=== PATIENT | female | born 1980 | race Caucasian/White ===

== ENCOUNTER 2017-08-06 08:54 | Outpatient (CLI) | payer MEDICAID | END 2017-08-06 08:55 | disposition home or self-care (01) | LOC: LAB.R 08:54 | PROVIDERS: ATTEND Physician Assistant Medical | DX: K59.00 Constipation, unspecified (principal); R10.84 Generalized abdominal pain; R19.7 Diarrhea, unspecified | CPT/HCPCS: 83630; 87045; 87046; 87177; 87209 ==

== ENCOUNTER → 2017-08-06 | Outpatient (CLI) | payer MEDICAID ==
[2017-08-06 13:24] LABS: BASOPHILS # (AUTO) 0.1 10^3/uL (0.0-0.1); BASOPHILS % (AUTO) 0.8 %; EOSINOPHILS # (AUTO) 0.3 10^3/uL (0.0-0.7); EOSINOPHILS % (AUTO) 2.9 %; HCT - HEMATOCRIT 43.6 % (37.0-47.0); HGB - HEMOGLOBIN 14.2 g/dL (12.0-16.0); LYMPHOCYTES # (AUTO) 2.9 10^3/uL (1.5-3.5); LYMPHOCYTES % (AUTO) 32.1 %; MEAN CORPUSCULAR HEMOGLOBIN 29.3 pg (27.0-31.0); MEAN CORPUSCULAR HGB CONC 32.6 g/dL (32.0-36.0); MEAN CORPUSCULAR VOLUME 89.8 fL (81.0-99.0); MEAN PLATELET VOLUME 11.6 fL (7.9-10.8); MONOCYTES # (AUTO) 0.7 10^3/uL (0.0-1.0); MONOCYTES % (AUTO) 7.3 %; NEUTROPHILS # (AUTO) 5.2 10^3/uL (1.5-6.6); NEUTROPHILS % (AUTO) 56.9 %; RED BLOOD COUNT 4.85 10^6/uL (4.20-5.40); RED CELL DISTRIBUTION WIDTH 12.8 % (12.0-15.0); UNCORRECTED WHITE BLOOD COUNT 9.1 x10^3/uL; WHITE BLOOD COUNT 9.1 x10^3/uL (4.8-10.8)
[2017-08-06 13:41] LABS: HEMOGLOBIN A1C 0.58 g/dL
[2017-08-06 14:06] LABS: ALBUMIN/GLOBULIN RATIO 1.5 (1.0-2.2); BILIRUBIN,TOTAL 0.6 mg/dL (0.2-1.0); BUN - BLOOD UREA NITROGEN 11 mg/dL (6-20); CALCIUM 10.2 mg/dL (8.5-10.3); CARBON DIOXIDE - CO2 24 mmol/L (21-32); CHLORIDE 106 mmol/L (101-111); CHOL/HDL RATIO 5.5 (<4.4); CHOLESTEROL 186 mg/dL; CREATININE 0.5 mg/dL (0.4-1.0); GFR - MDRD 140 (>89); GLUCOSE 115 mg/dL (70-100); HDL CHOLESTEROL 34 mg/dL; LDL/HDL RATIO 3.8 (<4.4); SODIUM 135 mmol/L (135-145); TRIGLYCERIDES 111 mg/dL; VLDL CHOLESTEROL 22 mg/dL
== END ==
LOC: LAB.N 08:00
PROVIDERS: ATTEND Physician Assistant Medical
DX: Z82.49 Family history of ischemic heart disease and other diseases of the circulatory system (principal); R19.7 Diarrhea, unspecified; Z81.8 Family history of other mental and behavioral disorders; Z83.3 Family history of diabetes mellitus; R10.84 Generalized abdominal pain; K59.00 Constipation, unspecified
CPT/HCPCS: 36415; 80053; 80061; 83036; 84443; 85025

== ENCOUNTER 2017-08-11 10:22 | Emergency (ER) | payer MEDICAID ==
[2017-08-11] MEDS ORDERED: LIDOCAINE 1% 2 ML VIAL ONE (13:28)
--- NOTE | 2017-08-11 13:37 | ED Physician Documentation ---
History of Present Illness - Stated complaint Stated Complaint: BUMP ON TAILBONE - Chief complaint Chief Complaint: General - History obtained from History obtained from: Patient - History of Present Illness Timing: How many weeks ago (1) - Additonal information Additional information: 37-year-old female has had a small red bump on her right buttocks for the past week. This area has grown in size and tenderness. Is begun to drain. There is a fair amount of drainage from the area and the pain has not decreased. Review of Systems Constitutional: reports: Myalgias, Fatigue. denies: Fever Eyes: denies: Decreased vision Ears: denies: Ear pain Nose: denies: Congestion Throat: denies: Sore throat Cardiac: denies: Chest pain / pressure Respiratory: denies: Cough GI: denies: Vomiting : denies: Dysuria, Frequency Skin: reports: Lesions. denies: Rash Musculoskeletal: reports: Extremity pain. 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 - Present Medications Home Medications: Ambulatory Orders Medication Instructions Recorded Confirmed HYDROcod/ACETAM 5/325 [[place] 5/325] 1 - 2 ea PO Q6H PRN #15 tablet 08/11/17 Melatonin 12 mg PO DAILY PM PRN 08/11/17 08/11/17 Sulfamethoxazole/Trimethoprim 1 each PO BID #14 tablet 08/11/17 [Sulfamethoxazole-Tmp Ds Tablet] - Allergies Allergies/Adverse Reactions: Allergies Allergy/AdvReac Type Severity Reaction Status Date / Time No Known Drug Allergies Allergy Verified 08/11/17 10:28 - Social History Does the pt smoke?: Yes Smoking Status: Current every day smoker Does the pt drink ETOH?: No Substance Use and Type: Marijuana PD ED PE NORMAL - Vitals Vital signs reviewed: Yes (Hypertension) - General General: Alert and oriented X 3, No acute distress, Well developed/nourished - HEENT HEENT: Atraumatic - Respiratory Respiratory: No respiratory distress - Back Back: No CVA TTP, No spinal TTP - Derm Derm: Normal color, Warm and dry, No rash - Extremities Extremities: No deformity, Other (There is a 2 cm round area over the upper end of the right buttocks at the edge of the crease. There is surrounding tenderness and fluctuance to the area. I am not able to manually express drainage.) - Neuro Neuro: Alert and oriented X 3, No motor deficit, No sensory deficit, Normal speech Eye Opening: Spontaneous Motor: Obeys Commands Verbal: Oriented GCS Score: 15 - Psych Psych: Normal mood, Normal affect Results - Vitals Vitals: Vital Signs - 24 hr 08/11/17 08/11/17 10:24 13:52 Temperature 36.4 C L Heart Rate 79 78 Respiratory 16 18 Rate Blood Pressure 138/85 H 152/88 H O2 Saturation 98 96 Oxygen O2 Source Room air Procedures - Abscess I&D (location) Right buttocks Preparation: Chlorhexadine, Lidocaine 1% Incision: Incised with scalpel, Purulent drainage, Loculations broken, Irrigated , Culture obtained Other: Pt tolerated well, Dressing applied, Antibiotic prescribed PD MEDICAL DECISION MAKING - ED course Complexity details: reviewed results, re-evaluated patient, considered differential, d/w patient, d/w family ED course: 37-year-old female with a abscess on the buttocks is incised and drained we will put her on some Septra. Departure - Departure Disposition: 01 Home, Self Care Clinical Impression: Abscess Condition: Stable Instructions: ED Abscess IandD Follow[facility]Up: [facility] [Provider Group] Prescriptions: HYDROcod/ACETAM 5/325 [[place] 5/325] 1 - 2 ea PO Q6H PRN #15 tablet PRN Reason: Pain Sulfamethoxazole/Trimethoprim [Sulfamethoxazole-Tmp Ds Tablet] 1 each PO BID # 14 tablet Forms: Activity restrictions Discharge Date/Time: 08/11/17 13:53
[2017-08-11 13:53] VITALS: BP 152/88
== END 2017-08-11 13:53 | disposition home or self-care (01) ==
LOC: ED 10:22
DX: L02.31 Cutaneous abscess of buttock (principal); F17.200 Nicotine dependence, unspecified, uncomplicated
CPT/HCPCS: 10060; 87070; 87205; 99283

== ENCOUNTER 2017-08-17 11:09 | Outpatient (CLI) | payer MEDICAID | END 2017-08-17 11:10 | disposition home or self-care (01) | LOC: LAB.N 11:09 | PROVIDERS: ATTEND Physician Assistant Medical | DX: E55.9 Vitamin D deficiency, unspecified (principal); K59.09 Other constipation; R10.84 Generalized abdominal pain; R19.7 Diarrhea, unspecified | CPT/HCPCS: 36415; 82306; 83516 ==

== ENCOUNTER 2017-09-27 19:30 | Emergency (ER) | payer MEDICAID ==
[2017-09-27] MEDS ORDERED: MORPHINE 10 MG/ML VIAL IVP STA (19:58)
[2017-09-27] MEDS ORDERED: BUFFERED LIDOCAINE 10 ML SYRINGE SUBQ STA (19:58)
[2017-09-27] MEDS ORDERED: LORazepam 2 MG/ML VIAL IVP STA (19:58)
--- NOTE | 2017-09-27 19:59 | ED Physician Documentation ---
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 - Present Medications Home Medications: Ambulatory Orders Medication Instructions Recorded Confirmed Amox/Clav 875/125 [Augmentin] 1 each PO Q12H #14 tablet 09/27/17 HYDROcod/ACETAM 5/325 [[place] 5/325] 1 - 2 ea PO Q6H PRN #15 tablet 09/27/17 Melatonin 3 tab PO DAILY 09/27/17 09/27/17 - Allergies Allergies/Adverse Reactions: Allergies Allergy/AdvReac Type Severity Reaction Status Date / Time No Known Drug Allergies Allergy Verified 09/27/17 19:38 - Social History Does the pt smoke?: Yes Smoking Status: Current every day smoker Does the pt drink ETOH?: No PD ED PE NORMAL - Vitals Vital signs reviewed: Yes - General General: Alert and oriented X 3, No acute distress - Derm Derm: Other (Pilonidal cyst with abscess at the top of the gluteal cleft just to the right of midline.) - Neuro Neuro: Alert and oriented X 3, Normal speech - Psych Psych: Normal mood, Normal affect Results - Vitals Vitals: Vital Signs - 24 hr 09/27/17 09/27/17 09/27/17 19:34 20:22 21:09 Temperature 36.5 C 36.3 C L 36.6 C Heart Rate 88 72 87 Respiratory 18 18 18 Rate Blood Pressure 143/103 H 136/88 H 134/87 H O2 Saturation 98 99 95 Oxygen O2 Source Room air Procedures - Abscess I&D (location) pilonidal Preparation: Alcohol, Lidocaine 1% Incision: Incised with scalpel, Purulent drainage, Loculations broken, Packed Other: Pt tolerated well, Dressing applied, Antibiotic prescribed Departure - Departure Disposition: 01 Home, Self Care Clinical Impression: Pilonidal abscess Condition: Good Record reviewed to determine appropriate education?: Yes Instructions: ED Cyst Pilonidal Infected IandD Follow-Up: TIFFANIE ESTRELLA MD [Provider Admit Priv/Credential] - (For definitive treatment of the pilonidal cyst. ) Prescriptions: Amox/Clav 875/125 [Augmentin] 1 each PO Q12H #14 tablet HYDROcod/ACETAM 5/325 [[place] 5/325] 1 - 2 ea PO Q6H PRN #15 tablet PRN Reason: Pain Comments: Follow-up with your doctor in 2 days for wound check and packing removal, return to the ER if unable to make an appointment there. Your blood pressure was elevated today on check into the emergency department. This does not mean that you have hypertension, it is a common phenomenon to come to the emergency department and have elevated blood pressure. I recommend that you see your primary care physician within the week to have it rechecked when you are feeling better. Do not drink or drive while taking narcotic pain medication. Note that many narcotic pain relievers also contain Tylenol/acetaminophen. Please ensure that your total dose of acetaminophen from all sources does not exceed 3 g (3000 mg) per day. You may get constipated while on this medication. Take a stool softener such as Colace twice a day while you are on it. Also add an [id number] laxative such as senna or MiraLAX on any day that you do not have a bowel movement. If you received a narcotic pain medication or sedative while in the emergency department, do not drive for the next 24 hours. Forms: Activity restrictions Discharge Date/Time: 09/27/17 21:26
[2017-09-27] MEDS ORDERED: AMOX/CLAV 875 MG/125 MG TABLET PO STA (20:48)
[2017-09-27] MEDS ORDERED: HYDROcod/ACET 5/325 Prepack 6 PO STA (20:48)
[2017-09-27 21:10] VITALS: BP 134/87
--- NOTE | 2017-10-02 05:11 | ED Physician Documentation ---
ED Addendum - Addendum Addendum: 10/02/17 05:10 Patient called the emergency department since she was getting sick with the augmentin. Patient stated that she had only a minimal reaction to bactrim so bactriim and zofran were called into [facility] for the patient.
== END 2017-09-27 21:26 | disposition home or self-care (01) ==
LOC: ED 19:30
DX: L05.01 Pilonidal cyst with abscess (principal); R03.0 Elevated blood-pressure reading, without diagnosis of hypertension
CPT/HCPCS: 10080; 96374; 96375; 99283; A9270; J2060

== ENCOUNTER 2017-10-02 09:50 | Emergency (ER) | payer MEDICAID ==
[2017-10-02] MEDS ORDERED: MAG HYDROX/AL HYDROX/SIMETH 30 ML UDC PO STA (12:27)
[2017-10-02] MEDS ORDERED: LIDOCAINE VISCOUS 2% 15 ML UDC MM STA (12:27)
--- NOTE | 2017-10-02 12:33 | ED Physician Documentation ---
PD HPI SKIN - Stated complaint Stated Complaint: ALLERGIC REACTION/VOMITING - Chief complaint Chief Complaint: Allergic Rx - History obtained from History obtained from: Patient - History of Present Illness Timing - onset: Other (37-year-old woman who was seen by me on ' [place] for a pilonidal cyst which was incised and drained, she was started on Augmentin , within the next 48 hours she developed severe upper abdominal pain with vomiting and constipation. She thinks it is side effect of the medication. She has no history of abdominal surgeries. No fevers.) Review of Systems Constitutional: reports: Reviewed and negative Cardiac: reports: Chest pain / pressure Respiratory: reports: Reviewed and negative GI: reports: Abdominal Pain, Nausea, Vomiting, Constipation. 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 - Present Medications Home Medications: Ambulatory Orders Medication Instructions Recorded Confirmed Amox/Clav 875/125 [Augmentin] 1 each PO Q12H #14 tablet 09/27/17 HYDROcod/ACETAM 5/325 [[place] 5/325] 1 - 2 ea PO Q6H PRN #15 tablet 09/27/17 Melatonin 3 tab PO DAILY 09/27/17 09/27/17 Famotidine [Pepcid] 20 mg PO BID #20 tablet 10/02/17 Omeprazole [PriLOSEC] 20 mg PO DAILY #14 capsule 10/02/17 - Allergies Allergies/Adverse Reactions: Allergies Allergy/AdvReac Type Severity Reaction Status Date / Time amoxicillin [From Augmentin] AdvReac Nausea Verified 10/02/17 10:27 clavulanic acid AdvReac Nausea Verified 10/02/17 10:27 [From Augmentin] - Social History Does the pt smoke?: Yes Smoking Status: Current every day smoker Does the pt drink ETOH?: No PD ED PE NORMAL - Vitals Vital signs reviewed: Yes - General General: Alert and oriented X 3, No acute distress - Cardiac Cardiac: RRR, No murmur - Respiratory Respiratory: No respiratory distress, Clear bilaterally - Abdomen Abdomen: Normal bowel sounds, Soft, Other (Moderate epigastric tenderness that does not lateralize with negative Salvador sign.) - Back Back: No CVA TTP, No spinal TTP - Derm Derm: Other (Pilonidal cyst is clean dry and intact without drainage or fluctuance, no cellulitis. I told her based on this she probably does not need any further antibiotics.) - Neuro Neuro: Alert and oriented X 3, Normal speech Results - Vitals Vitals: Vital Signs - 24 hr 10/02/17 10:22 Temperature 36.7 C Heart Rate 89 Respiratory 20 Rate Blood Pressure 132/81 H O2 Saturation 97 Oxygen O2 Source Room air - Labs Labs: Laboratory Tests 10/02/17 10/02/17 10/02/17 12:40 12:40 13:17 WBC 11.3 H RBC 5.31 Hgb 15.8 Hct 46.3 MCV 87.3 MCH 29.8 MCHC 34.2 RDW 13.0 Plt Count 186 MPV 10.0 Neut # 6.7 H Lymph # 3.2 Chambers # 0.8 Eos # 0.5 Baso # 0.1 Absolute Nucleated RBC 0.01 Nucleated RBC % 0.1 Sodium 136 Potassium 3.9 Chloride 104 Carbon Dioxide 24 Anion Gap 8.0 BUN 11 Creatinine 0.6 Estimated GFR (MDRD) 114 Glucose 97 Calcium 10.7 H Total Bilirubin 0.3 AST 16 ALT 20 Alkaline Phosphatase 60 Total Protein 7.3 Albumin 4.4 Globulin 2.9 Albumin/Globulin Ratio 1.5 Lipase 17 L Urine Color YELLOW Urine Clarity CLEAR Urine pH 6.0 Ur Specific [place] >=1.030 H Urine Protein NEGATIVE Urine Glucose (UA) NEGATIVE Urine Ketones TRACE Urine Occult Blood NEGATIVE Urine Nitrite NEGATIVE Urine Bilirubin NEGATIVE Urine Urobilinogen 0.2 (NORMAL) Ur Leukocyte Esterase NEGATIVE Ur Microscopic Review NOT INDICATED Urine Culture Comments NOT INDICATED Urine HCG, Qual NEGATIVE PD MEDICAL DECISION MAKING - ED course ED course: She presents with what seems like gastritis after starting Augmentin which may be a side effect. She was administered a GI cocktail with excellent relief of her symptoms and was nontender on repeat evaluation prior to discharge. The patient and family were counseled as to the diagnosis and need for follow- up. I counseled the patient with regard to signs and symptoms that would necessitate an urgent reevaluation in the emergency department. They understand they are welcome to return at any time if worse or if not improving as expected. This document was made in part using voice recognition software. While efforts are made to proofread this documents, sound alike and grammatical errors may occur. Departure - Departure Disposition: Home, Self Care Clinical Impression: Gastritis Qualifiers: Gastritis type: unspecified gastritis Chronicity: acute Gastritis bleeding: without bleeding Qualified Code(s): K29.00 - Acute gastritis without bleeding Condition: Good Record reviewed to determine appropriate education?: Yes Instructions: ED PUD Vs Gastritis Prescriptions: Famotidine [Pepcid] 20 mg PO BID #20 tablet Omeprazole [PriLOSEC] 20 mg PO DAILY #14 capsule Comments: Call your doctor to arrange a follow-up appointment, make the next available appointment. In the interim, return anytime if worse or if new symptoms develop. Your blood pressure was elevated today on check into the emergency department. This does not mean that you have hypertension, it is a common phenomenon to come to the emergency department and have elevated blood pressure. I recommend that you see your primary care physician within the week to have it rechecked when you are feeling better. Forms: Activity restrictions
[2017-10-02 12:43] LABS: BASOPHILS # (AUTO) 0.1 10^3/uL (0.0-0.1); BASOPHILS % (AUTO) 0.6 %; EOSINOPHILS # (AUTO) 0.5 10^3/uL (0.0-0.7); EOSINOPHILS % (AUTO) 4.5 %; HGB - HEMOGLOBIN 15.8 g/dL (12.0-16.0); LYMPHOCYTES # (AUTO) 3.2 10^3/uL (1.5-3.5); LYMPHOCYTES % (AUTO) 28.6 %; MEAN CORPUSCULAR HEMOGLOBIN 29.8 pg (27.0-31.0); MEAN CORPUSCULAR HGB CONC 34.2 g/dL (32.0-36.0); MEAN CORPUSCULAR VOLUME 87.3 fL (81.0-99.0); MONOCYTES # (AUTO) 0.8 10^3/uL (0.0-1.0); NEUTROPHILS # (AUTO) 6.7 10^3/uL (1.5-6.6); NEUTROPHILS % (AUTO) 59.3 %; PLT - PLATELET COUNT 186 10^3/uL (130-450); RED BLOOD COUNT 5.31 10^6/uL (4.20-5.40); WHITE BLOOD COUNT 11.3 x10^3/uL (4.8-10.8)
[2017-10-02 12:57] LABS: ALBUMIN 4.4 g/dL (3.2-5.5); ALBUMIN/GLOBULIN RATIO 1.5 (1.0-2.2); BILIRUBIN,TOTAL 0.3 mg/dL (0.2-1.0); CALCIUM 10.7 mg/dL (8.5-10.3); CREATININE 0.6 mg/dL (0.4-1.0); TOTAL PROTEIN 7.3 g/dL (6.7-8.2)
[2017-10-02] MEDS ORDERED: FAMOTIDINE 20 MG TABLET PO STA (12:57)
[2017-10-02] MEDS ORDERED: PANTOPRAZOLE 40 MG TABLET PO STA (12:57)
[2017-10-02 13:35] LABS: BILIRUBIN,URINE NEGATIVE (NEGATIVE); GLUCOSE, URINE (UA) NEGATIVE (NEGATIVE); KETONES,URINE (UA) TRACE mg/dL (NEGATIVE); LEUKOCYTE ESTERASE, URINE NEGATIVE (NEGATIVE); NITRITE,URINE NEGATIVE (NEGATIVE); OCCULT BLOOD,URINE NEGATIVE (NEGATIVE); PROTEIN,URINE NEGATIVE (NEGATIVE); UROBILINOGEN,URINE 0.2 (NORMAL) E.U./dL (NORMAL)
[2017-10-02 13:37] LABS: CLARITY,URINE CLEAR (CLEAR); HCG UR QUAL NEGATIVE
[2017-10-02 13:54] VITALS: BP 133/81
== END 2017-10-02 13:49 | disposition home or self-care (01) ==
LOC: ED 09:50
DX: K29.00 Acute gastritis without bleeding (principal); R03.0 Elevated blood-pressure reading, without diagnosis of hypertension; F17.200 Nicotine dependence, unspecified, uncomplicated
CPT/HCPCS: 36415; 80053; 81003; 81025; 83690; 85025; 99283; 99284; A9270; 81001; 87086

== ENCOUNTER 2017-12-25 09:16 | Emergency (ER) | payer MEDICAID, OTHER ==
[2017-12-25 09:28] VITALS: BP 152/81
[2017-12-25] MEDS ORDERED: cephALEXin 250 MG CAPSULE PO STA (09:59)
--- NOTE | 2017-12-25 10:02 | ED Physician Documentation ---
PD HPI SKIN - Stated complaint Stated Complaint: CYSTS - Chief complaint Chief Complaint: Wound - History obtained from History obtained from: Patient - History of Present Illness Timing - onset: How many days ago (2) Timing - details: Gradual onset Location: Other (pilonidal) Quality / character: Painful, Swelling Similar symptoms before: Diagnosis (History of pilonidal cyst, S/P I & D x 2.) - Additional information Additional information: The patient is a 37-year-old female who presents complaining of a recurrent pilonidal cyst. Her symptoms started 2 days ago, and she presents to have it drained before it gets worse. She has undergone incision and drainage of a pilonidal cyst in the same location twice in the past. The last time was 3 months ago. She denies fever, nausea or vomiting, or dysuria. She is not diabetic. Review of Systems Constitutional: denies: Fever Nose: denies: Congestion Throat: denies: Sore throat Respiratory: denies: Dyspnea, Cough GI: denies: Abdominal Pain, Nausea, Vomiting, Diarrhea : denies: Dysuria Skin: reports: Other (Pilonidal cyst.). 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 - Present Medications Home Medications: Ambulatory Orders Medication Instructions Recorded Confirmed Amox/Clav 875/125 [Augmentin] 1 each PO Q12H #14 tablet 09/27/17 HYDROcod/ACETAM 5/325 [[place] 5/325] 1 - 2 ea PO Q6H PRN #15 tablet 09/27/17 Melatonin 3 tab PO DAILY 09/27/17 09/27/17 Famotidine [Pepcid] 20 mg PO BID #20 tablet 10/02/17 Omeprazole [PriLOSEC] 20 mg PO DAILY #14 capsule 10/02/17 cephALEXin [Cephalexin] 500 mg PO QID #28 tablet 12/25/17 - Allergies Allergies/Adverse Reactions: Allergies Allergy/AdvReac Type Severity Reaction Status Date / Time amoxicillin [From Augmentin] AdvReac Nausea Verified 12/25/17 09:28 clavulanic acid AdvReac Nausea Verified 12/25/17 09:28 [From Augmentin] - Social History Does the pt smoke?: Yes Smoking Status: Current every day smoker Does the pt drink ETOH?: No - Immunizations Immunizations are current?: Yes PD ED PE NORMAL - Vitals Vital signs reviewed: Yes (initially hypertensive.) - General General: Alert and oriented X 3, Other (Morbidly obese.) - HEENT HEENT: Atraumatic - Neck Neck: No adenopathy - Cardiac Cardiac: RRR - Respiratory Respiratory: No respiratory distress, Clear bilaterally - Abdomen Abdomen: Soft, Non tender - Back Back: No CVA TTP - Derm Derm: Other (There is a small, less than 1 cm, tender lesion on the right side of the anal crease. It is firm, and there is associated scarring from previous incision and drainage. There is no surrounding erythema, and no fluctuance.) - Extremities Extremities: No edema, No calf tenderness / cord - Neuro Neuro: Alert and oriented X 3, No motor deficit, Normal speech Results - Vitals Vitals: Oxygen O2 Source Room air PD MEDICAL DECISION MAKING - ED course Complexity details: reviewed old records, considered differential, d/w patient ED course: The patient's presentation is most consistent with an early pilonidal cyst, without a pocket of pus to drain at this time. Needle aspiration of the site after instilling local lidocaine anesthetic, resulted in negative aspiration attempt. Cephalexin 500 mg was administered orally. I discussed with her the diagnosis, antibiotic treatment and outpatient follow-up, as well as potentially worrisome signs or symptoms that should prompt reevaluation in the emergency department. Departure - Departure Disposition: 01 Home, Self Care Clinical Impression: Pilonidal abscess Condition: Stable Instructions: ED Staph Infec Abx Tx Only Follow-Up: [facility] [Provider Group] Prescriptions: cephALEXin [Cephalexin] 500 mg PO QID #28 tablet Comments: Take cephalexin 4 times daily as prescribed. Apply hot packs to the infected area intermittently for the next 4 days. You can use Tylenol or ibuprofen if needed for discomfort. Follow-up with primary physician within 2 weeks if possible. Call to schedule appointment. Return to the emergency room if you develop markedly increasing swelling, pain, or otherwise worsening symptoms. Discharge Date/Time: 12/25/17 10:19
== END 2017-12-25 10:19 | disposition home or self-care (01) ==
LOC: ED 09:16
DX: L05.91 Pilonidal cyst without abscess (principal); F17.200 Nicotine dependence, unspecified, uncomplicated
CPT/HCPCS: 10160; 99283; A9270